=== PATIENT | male | born 1970 | race African-American/Black ===

== ENCOUNTER 2021-10-05 21:28 | Emergency (ER) | payer BC ==
[~2021-10-05] VITALS: Ht 182.9 cm; Wt 96.0 kg
[2021-10-06] MEDS ORDERED: IBUP-2028 MT (02:07)
[2021-10-06] MEDS ORDERED: DEXAMETHASONE 4MG TABLET PO ONE (02:15)
[2021-10-06] MEDS ORDERED: HYDR12.54 MT (02:58)
[2021-10-06 03:15] VITALS: BP 181/125
== END 2021-10-06 03:30 | disposition home or self-care (01) ==
LOC: ER 21:28
DX: J02.9 Acute pharyngitis, unspecified (principal)
CPT/HCPCS: 93005; 99283; J8540